=== PATIENT | male | born 1950 | race Caucasian/White ===

== ENCOUNTER 2023-11-27 12:39 | Emergency (ER) | payer MEDICARE, MEDICAID ==
[2023-11-27 14:20] LABS: BASOPHILS ABSOLUTE AUTO 0.04 K/uL (0.00-0.10); BASOPHILS PERCENT AUTO 0.4 % (0.1-1.3); EOSINOPHILS ABSOLUTE AUTO 0.01 K/uL (0.00-0.40); EOSINOPHILS PERCENT AUTO 0.1 % (0.0-5.4); HEMATOCRIT 27.6 % (38.4-49.7); HEMOGLOBIN 8.9 g/dL (12.9-16.9); IMMATURE GRAN ABSOLUTE AUTO 0.12 K/uL (0.00-0.23); IMMATURE GRAN PERCENT AUTO 1.1 % (0.0-0.7); LYMPHOCYTES ABSOLUTE AUTO 0.89 K/uL (0.8-3.3); LYMPHOCYTES PERCENT AUTO 7.9 % (11.4-47.7); MEAN CORPUSCULAR HGB CONC 32.2 g/dL (31.6-35.5); MEAN CORPUSCULAR VOLUME 92.9 fL (81.4-99.0); MONOCYTES ABSOLUTE AUTO 0.99 K/uL (0.20-0.90); MONOCYTES PERCENT AUTO 8.8 % (3.3-12.6); NEUTROPHILS ABSOLUTE AUTO 9.24 K/uL (1.0-7.6); NEUTROPHILS PERCENT AUTO 81.7 % (40.0-78.1); PLATELET COUNT,PLT 314 K/uL (130-375); RED BLOOD CELL COUNT 2.97 M/uL (4.14-5.76); WHITE BLOOD CELL COUNT,WBC 11.3 K/uL (3.2-11.0)
[2023-11-27 14:32] LABS: BLOOD UREA NITROGEN,BUN 55 mg/dL (7-18); CALCIUM 8.8 mg/dL (8.5-10.1); CARBON DIOXIDE,CO2 32 mmol/L (21-32); CHLORIDE,CL 100 mmol/L (100-108); CREATININE 1.8 mg/dL (0.8-1.3); ESTIMATED GFR 40 mL/min (>60); GLUCOSE RANDOM 188 mg/dL (74-106); SODIUM,NA 138 mmol/L (140-148)
[2023-11-27] MEDS: Sodium Chloride 0.9% 1,000 ML IV SCH (15:32)
[2023-11-27] MEDS: Sodium Chloride 0.9% 10 ML Syringe FLUSH PRN (15:32)
[2023-11-27] MEDS: Iopamidol 755 Mg/ML 100 ML Bottle IV SCH (15:33)
[2023-11-27] MEDS: Sodium Chloride 0.9% 100 ML IV SCH (15:33)
[2023-11-27] MEDS: Apixaban 5 MG Tab PO ONE (17:04)
== END 2023-11-27 17:28 ==
LOC: JP.ED 12:39
DX: I82.492 Acute embolism and thrombosis of other specified deep vein of left lower extremity (principal); Z87.891 Personal history of nicotine dependence; Z79.01 Long term (current) use of anticoagulants; Z88.0 Allergy status to penicillin
CPT/HCPCS: 36415; 71275; 80048; 85025; 99284; A9270; J3490; J7030; Q9967

== ENCOUNTER 2024-10-02 11:29 | Emergency (ER) | payer MEDICARE, MEDICAID ==
[2024-10-02] MEDS: Lidocaine 2% Jelly 10 ML Urojet MUCMEM ONE (11:37)
[2024-10-02 11:48] LABS: BASOPHILS PERCENT AUTO 0.1 % (0.1-1.3); EOSINOPHILS PERCENT AUTO 0.2 % (0.0-5.4); HEMATOCRIT 40.8 % (38.4-49.7); HEMOGLOBIN 13.6 g/dL (12.9-16.9); IMMATURE GRAN ABSOLUTE AUTO 0.05 K/uL (0.00-0.23); IMMATURE GRAN PERCENT AUTO 0.4 % (0.0-0.7); LYMPHOCYTES ABSOLUTE AUTO 0.45 K/uL (0.8-3.3); LYMPHOCYTES PERCENT AUTO 3.6 % (11.4-47.7); MEAN CORPUSCULAR HEMOGLOBIN 30.5 pg (31.6-35.5); MEAN CORPUSCULAR HGB CONC 33.3 g/dL (31.6-35.5); MEAN CORPUSCULAR VOLUME 91.5 fL (81.4-99.0); NEUTROPHILS ABSOLUTE AUTO 11.36 K/uL (1.0-7.6); NEUTROPHILS PERCENT AUTO 91.7 % (40.0-78.1); PLATELET COUNT,PLT 295 K/uL (130-375); RED BLOOD CELL COUNT 4.46 M/uL (4.14-5.76); WHITE BLOOD CELL COUNT,WBC 12.4 K/uL (3.2-11.0)
[2024-10-02 11:49] LABS: BASOPHILS ABSOLUTE AUTO 0.01 K/uL (0.00-0.10); EOSINOPHILS ABSOLUTE AUTO 0.02 K/uL (0.00-0.40)
[2024-10-02 12:04] LABS: INR 1.2; PROTHROMBIN TIME 12.1 sec (9.2-10.6)
[2024-10-02 12:08] LABS: A/G RATIO 1.1 (1.2-2.2); ALANINE AMINOTRANSFERASE,ALT 15 U/L (12-78); ALBUMIN 3.8 g/dL (3.4-5.0); ALKALINE PHOSPHATASE 54 U/L (46-116); ASPARTATE AMNIOTRANSFERASE,AST 16 U/L (15-37); BILIRUBIN TOTAL 0.5 mg/dL (0.2-1.0); BLOOD UREA NITROGEN,BUN 18 mg/dL (7-18); CALCIUM 9.2 mg/dL (8.5-10.1); CARBON DIOXIDE,CO2 27 mmol/L (21-32); CHLORIDE,CL 102 mmol/L (100-108); CREATININE 1.7 mg/dL (0.8-1.3); ESTIMATED GFR 42 mL/min (>60); GLUCOSE RANDOM 150 mg/dL (74-106); POTASSIUM,K 4.2 mmol/L (3.6-5.2); PROTEIN TOTAL,TP 7.4 g/dL (6.4-8.2); SODIUM,NA 138 mmol/L (140-148)
[2024-10-02 12:10] LABS: ANION GAP 13.2 mmol/L (5.0-14.0)
[2024-10-02 12:19] LABS: BILIRUBIN,URINE NEGATIVE (NEGATIVE); COLOR,URINE RED (YELLOW); GLUCOSE,URINE NEGATIVE (NEGATIVE); KETONES,URINE NEGATIVE (NEGATIVE); LEUKOCYTE ESTERASE,URINE LARGE (NEGATIVE); NITRITE,URINE POSITIVE (NEGATIVE); OCCULT BLOOD,URINE LARGE (NEGATIVE); PH,URINE 7.5 (5.0-8.0); PROTEIN,URINE >=300 mg/dL (NEGATIVE); UROBILINOGEN,URINE 0.2 EU/dL (0.2-1.0)
[2024-10-02 12:27] LABS: AMORPHOUS SEDIMENT,URINE NOT SEEN; APPEARANCE,URINE CLOUDY (CLEAR); BACTERIA,URINE MANY; EPITHELIAL CELLS,URINE FEW; MUCUS,URINE FEW; RBC,URINE 50-75 (0-5); WBC,URINE 20-30 (0-5)
== END 2024-10-02 13:25 ==
LOC: JP.ED 11:29
DX: N39.0 Urinary tract infection, site not specified (principal); Z79.899 Other long term (current) drug therapy; Z88.0 Allergy status to penicillin
CPT/HCPCS: 36415; 51702; 80053; 81001; 85025; 85610; 87086; 87088; 87186; 99285

== ENCOUNTER 2024-11-13 13:13 | Emergency (ER) | payer MEDICARE, MEDICAID ==
[2024-11-13] MEDS: Lidocaine 2% Jelly 10 ML Urojet MUCMEM ONE (13:34)
== END 2024-11-13 15:33 ==
LOC: JP.ED 13:13
DX: T83.83XA Hemorrhage due to genitourinary prosthetic devices, implants and grafts, initial encounter (principal); Y73.2 Prosthetic and other implants, materials and accessory gastroenterology and urology devices associated with adverse incidents; Z88.0 Allergy status to penicillin; Z79.899 Other long term (current) drug therapy; Z79.01 Long term (current) use of anticoagulants
CPT/HCPCS: 51702; 99284

== ENCOUNTER 2025-02-10 01:19 | Emergency (ER) | payer MEDICARE ==
[2025-02-10] MEDS: Lidocaine 2% Jelly 10 ML Urojet MUCMEM ONE (06:35)
== END 2025-02-10 07:16 | disposition home or self-care (01) ==
LOC: JP.ED 01:19
DX: T83.9XXA Unspecified complication of genitourinary prosthetic device, implant and graft, initial encounter (principal); Z79.01 Long term (current) use of anticoagulants; Z79.899 Other long term (current) drug therapy; Z88.0 Allergy status to penicillin
CPT/HCPCS: 51700; 99282; 99283-25